=== PATIENT | male | born 1945 | race Caucasian/White ===

== ENCOUNTER → 2019-02-11 | Outpatient (CLI) | payer MEDICARE, BC ==
[~2019-02-11] MED LIST: ALBU90OI INH; ASCO500 PO; ASPI81CH PO; BENZ100A PO; ERGO50000 PO; FAMO20 PO; FLUO10 PO; HYDACE10B PO; HYDHCL10 PO; LEVSOD25 PO; LISI5 PO; METH5 PO; MULTIVITAMIN PO; OMEP20ER PO; PRAZ2 PO; PROM25 PO; RISP1 PO; SIMV80 PO; TRAZ150T57 PO; [UNRECOGNIZED DRUG - OTHER] PO
[2019-02-11 10:36] LABS: BASOPHILS ABSOLUTE AUTO 0.05 K/mm3 (0.00-0.23); BASOPHILS PERCENT AUTO 1 % (0-2); EOSINOPHILS PERCENT AUTO 2 % (0-6); Hematocrit 43.5 % (37.0-53.0); Hemoglobin 15.1 g/dL (13.5-17.5); IMMATURE GRAN ABSOLUTE AUTO 0.02 K/mm3 (0.00-0.10); IMMATURE GRAN PERCENT AUTO 0 % (0-1); LYMPHOCYTES ABSOLUTE AUTO 1.91 K/mm3 (0.84-5.20); LYMPHOCYTES PERCENT AUTO 28 % (21-46); MONOCYTES PERCENT AUTO 6 % (4-13); Mean Corpuscular HGB 31.7 pg (26.0-34.0); Mean Corpuscular HGB Conc 34.7 g/dL (31.5-36.5); Mean Corpuscular Volume 91 fL (80-100); Mean Platelet Volume 10.3 fL (9.1-12.4); NEUTROPHILS PERCENT AUTO 64 % (41-73); Platelet Count 249 K/mm3 (150-400); RDW Coefficient Variation 14.7 % (11.7-14.2); Red Blood Cell Count 4.77 M/mm3 (4.30-5.90); White Blood Cell Count 6.88 K/mm3 (4.00-11.30)
[2019-02-11 10:52] LABS: Alanine Aminotransfer (ALT/SGP 45 U/L (12-78); Albumin/Globulin Ratio 1.1 (0.8-1.8); Alk Phos 67 U/L (40-126); Anion Gap 9 mmol/L (6-16); Aspartate Aminotrans (AST/SGOT 37 U/L (12-37); Bilirubin, Total 0.6 mg/dL (0.1-1.0); Blood Urea Nitrogen 13 mg/dL (8-24); Bun/Creatinine Ratio 13.4 (12.0-20.0); CO2, Blood 29 mmol/L (21-32); Calcium, Blood 8.9 mg/dL (8.5-10.1); Chloride, Blood 105 mmol/L (98-108); Creatinine, Blood 0.97 mg/dL (0.60-1.20); Globulin, Blood 3.5 g/dL (2.2-4.0); Glomerular Filtration Rate >60 (60-); Glucose, Blood 101 mg/dL (70-99); Potassium, Blood 4.5 mmol/L (3.5-5.5); Sodium, Blood 143 mmol/L (136-145); Total Protein, Blood 7.5 g/dL (6.4-8.2)
== END | disposition home or self-care (01) ==
LOC: LAB SHORT 10:30 → LAB EV 10:30
PROVIDERS: Emergency Medicine
DX: R22.1 Localized swelling, mass and lump, neck (principal)
CPT/HCPCS: 80053; 85025

== ENCOUNTER 2019-02-27 07:25 | Day surgery (SDC) | payer MEDICARE, BC ==
[~2019-02-27] VITALS: Ht 175.3 cm; Wt 81.1 kg
[2019-02-27] MEDS ORDERED: PRAZ2 (08:06)
== END 2019-02-27 10:50 | disposition home or self-care (01) ==
LOC: ORSCSDS 07:25
PROVIDERS: Surgery
PROC: 0JB50ZZ Excision of Left Neck Subcutaneous Tissue and Fascia, Open Approach (ICD-10-PCS; principal; 2019-02-27 08:45)
DX: D17.9 Benign lipomatous neoplasm, unspecified (principal)
CPT/HCPCS: 88304; J0690; J2250; J2704; J3010; J7120

== ENCOUNTER 2019-08-05 09:02 | Day surgery (SDC) | payer MEDICARE, BC ==
[~2019-08-05 09:02] MED LIST changes: +PRAZ2
== END 2019-08-05 22:47 | disposition home or self-care (01) ==
LOC: RAD 09:02
DX: M24.852 Other specific joint derangements of left hip, not elsewhere classified (principal); M70.62 Trochanteric bursitis, left hip; S39.012A Strain of muscle, fascia and tendon of lower back, initial encounter
CPT/HCPCS: 20610; 73722; 77002; A9577; Q9967

== ENCOUNTER 2019-09-17 16:01 | Inpatient (IN) | payer MEDICARE, BC ==
[~2019-09-17] VITALS: Ht 175.3 cm; Wt 77.0 kg
[~2019-09-17 16:01] MED LIST changes: +Atarax10 MG PO; +BENADRYL25 M1 PO; +CENTRUM SILVER1 EAC2 PO; +DULO60 PO; +OMEPRAZOLE20 MG PO; +PROP10 PO; +Prazosin HCl2 MG PO; +TRAZ100 PO; +VITAMIN D31000 UNI3 PO
--- NOTE | 2019-09-18 10:18 | NUR ---
Ambulatory in Day Surgery. Surgical site prepped with 2% Chlorhexidine cloth wipe. History, Chart, Medications and Allergies reviewed before start of procedure.Lungs clear T/O to Auscultation. Patient confirms NPO status and agrees with scheduled surgery. Pre-Op teaching done. Pt verbalizes understanding. Patient States Post-Procedure ride home has been arranged. Patient reports completing Chlorhexadine shower X2 prior to admission to hospital.
--- NOTE | 2019-09-18 13:36 | NUR ---
09/18/19 1336 Jill Castellanos 1000 CC NS AND 900 CC IRRISEPT USED FOR IRRIGATION.
[2019-09-19 05:03] LABS: BASOPHILS ABSOLUTE AUTO 0.02 K/mm3 (0.00-0.23); BASOPHILS PERCENT AUTO 0 % (0-2); EOSINOPHILS ABSOLUTE AUTO 0.03 K/mm3 (0.00-0.68); EOSINOPHILS PERCENT AUTO 0 % (0-6); Hematocrit 42.5 % (37.0-53.0); Hemoglobin 14.1 g/dL (13.5-17.5); IMMATURE GRAN ABSOLUTE AUTO 0.02 K/mm3 (0.00-0.10); IMMATURE GRAN PERCENT AUTO 0 % (0-1); LYMPHOCYTES ABSOLUTE AUTO 1.83 K/mm3 (0.84-5.20); LYMPHOCYTES PERCENT AUTO 18 % (21-46); MONOCYTES PERCENT AUTO 5 % (4-13); Mean Corpuscular HGB Conc 33.2 g/dL (31.5-36.5); Mean Corpuscular Volume 96 fL (80-100); Mean Platelet Volume 10.3 fL (9.1-12.4); NEUTROPHILS ABSOLUTE AUTO 8.04 K/mm3 (1.96-9.15); NEUTROPHILS PERCENT AUTO 77 % (41-73); Platelet Count 197 K/mm3 (150-400); RDW Coefficient Variation 11.9 % (11.7-14.2); RDW Standard Deviation 42.1 fL (35.1-46.3); Red Blood Cell Count 4.41 M/mm3 (4.30-5.90); White Blood Cell Count 10.44 K/mm3 (4.00-11.30)
[2019-09-19 06:18] LABS: Alanine Aminotransfer (ALT/SGP 22 U/L (12-78); Albumin, Blood 3.2 g/dL (3.4-5.0); Alk Phos 68 U/L (50-136); Anion Gap 4 mmol/L (6-16); Aspartate Aminotrans (AST/SGOT 25 U/L (12-37); Bilirubin, Total 0.4 mg/dL (0.1-1.0); Blood Urea Nitrogen 14 mg/dL (8-24); Bun/Creatinine Ratio 17.8 (12.0-20.0); CO2, Blood 29 mmol/L (21-32); Calcium, Blood 8.9 mg/dL (8.5-10.1); Chloride, Blood 108 mmol/L (98-108); Creatinine, Blood 0.79 mg/dL (0.60-1.20); Globulin, Blood 3.1 g/dL (2.2-4.0); Glomerular Filtration Rate >60 (60-); Glucose, Blood 109 mg/dL (70-99); Percent Saturation 29.8 % (20.0-50.0); Potassium, Blood 4.1 mmol/L (3.5-5.5); Sodium, Blood 141 mmol/L (136-145); Thyroid Stimulating Hormone 0.264 uIU/mL (0.360-4.800); Total Protein, Blood 6.3 g/dL (6.4-8.2)
[2019-09-19] MEDS ORDERED: Percocet 5-3251 EACH PO (07:25)
--- NOTE | 2019-09-19 07:47 | NUR ---
SHIFT SUMMARY PT POD#1 TOTAL RIGHT ANKLE. AAOX4. DISCOMFORT CONTROLLED WITH X1 NORCO THIS AM. NO NAUSEA/EMESIS. DRESSING TO RIGHT ANKLE WITH INEZ WRAP C/D/I. PT REPORTING TINGLING TO RLE POST OP, INCREASING SENSATION NOTED BY PT T/O NIGHT. WEAKNESS TO MOVING TOES RLE, PPP, BRISK CAP REFILL. GOOD PO INTAKE + OUTPUT T/O NIGHT. PT RESTING WELL. PT AWAKE AT THIS TIME, DRINKING COFFEE WHILE WATCHING TV, NADN, WITH CALL LIGHT IN REACH. REPORT TO DAY SHIFT RN.
--- NOTE | 2019-09-19 11:30 | NUR ---
DISCHARGE PT EDUCATED ON AND RECEIVED PRINTED DC INSTRUCTIONS AND VERB AN UNDERSTANDING. HARD RX FOR PERCOCET GIVEN TO PT. F/U APPT SCHEDULED. IVS DC'D. PT WAITING FOR TO BRING CLOTHING TO GET DRESSED AND TAKE HOME.
== END 2019-09-19 11:46 | disposition home or self-care (01) | DRG 469 ==
LOC: SURS 09-18 09:07 → PRE IP 09-18 09:07 → SURS 09-18 09:11 → PRE IP 09-18 10:30 → SURS 09-18 14:31
PROVIDERS: Internal Medicine; ADMIT Podiatrist Foot & Ankle Surgery
PROC: 0L8S0ZZ Division of Right Ankle Tendon, Open Approach (ICD-10-PCS; 2019-09-18)
PROC: 0SRF0JA Replacement of Right Ankle Joint with Synthetic Substitute, Uncemented, Open Approach (ICD-10-PCS; principal; 2019-09-18 10:30)
DX: M19.071 Primary osteoarthritis, right ankle and foot (principal); M24.571 Contracture, right ankle; F43.10 Post-traumatic stress disorder, unspecified; E03.9 Hypothyroidism, unspecified; F32.9 Major depressive disorder, single episode, unspecified; Z98.84 Bariatric surgery status
CPT/HCPCS: 36415; 73610; 80053; 82306; 82607; 82728; 82746; 83540; 83550; 83735; 84443; 85025; 86850; 86900; 86901; 88300; 96372; 97116; 97162; 97165; A9270-GY; C1776; G0378; J0171; J0690; J0735; J1100; J1650; J1885; J2405; J2704; J2795; J3010; J7120; Q0163

== ENCOUNTER 2021-01-12 10:46 | Day surgery (SDC) | payer MEDICARE, BC ==
[~2021-01-12] VITALS: Ht 175.3 cm; Wt 83.4 kg
[~2021-01-12 10:46] MED LIST changes: +Percocet 5-3251 EACH PO
[2021-01-12] MEDS ORDERED: RISP.5 (11:12)
--- NOTE | 2021-01-12 12:01 | NUR ---
01/12/[address] IN ROOM TO DO BLOCK. PT TOLERATED PROCEDURE WELL AND ON CONTINOUS PULSE OX WITH 94% IN RA
--- NOTE | 2021-01-12 12:48 | NUR ---
01/12/21 1247 Risa Fong EPI 1MG IMJECTED INTO 3000ML BAG OF LR X 3 PER ORDERS
== END 2021-01-12 14:52 | disposition home or self-care (01) ==
LOC: ORSCSDS 10:46
PROVIDERS: Orthopaedic Surgery
PROC: 0PB94ZZ Excision of Right Clavicle, Percutaneous Endoscopic Approach (ICD-10-PCS; principal; 2021-01-12 11:30)
PROC: 0LU14KZ Supplement Right Shoulder Tendon with Nonautologous Tissue Substitute, Percutaneous Endoscopic Approach (ICD-10-PCS; principal; 2021-01-12 11:30)
PROC: 0LQ14ZZ Repair Right Shoulder Tendon, Percutaneous Endoscopic Approach (ICD-10-PCS; principal; 2021-01-12 11:30)
PROC: 0RNJ4ZZ Release Right Shoulder Joint, Percutaneous Endoscopic Approach (ICD-10-PCS; principal; 2021-01-12 11:30)
DX: M75.111 Incomplete rotator cuff tear or rupture of right shoulder, not specified as traumatic (principal); M75.21 Bicipital tendinitis, right shoulder; M75.41 Impingement syndrome of right shoulder; M19.011 Primary osteoarthritis, right shoulder; E03.9 Hypothyroidism, unspecified; Z79.899 Other long term (current) drug therapy
CPT/HCPCS: C1713; J0171; J0690; J1100; J2250; J2370; J2405; J2704; J2795; J3010; J7120